=== PATIENT | male | born 1980 | race Hispanic/Latino ===

== ENCOUNTER 2019-02-03 15:24 | Outpatient (CLI) | payer OTHER ==
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
== END 2019-02-03 15:25 | disposition home or self-care (01) ==
LOC: BICRAD 15:24
PROVIDERS: ATTEND Specialist
DX: Z03.818 Encounter for observation for suspected exposure to other biological agents ruled out (principal)
CPT/HCPCS: 71046

== ENCOUNTER 2019-03-28 09:14 | Outpatient (CLI) | payer OTHER ==
--- NOTE | 2019-03-28 09:38 | RAD ---
Exam: CERVICAL SPINE 5 VIEWS: HISTORY: Cervical root disorder. No specific injury. However, the patient is having abnormal sensatio ns. Tingling in both hands. COMPARISON: None. FINDINGS: On the AP and open-mouth projection, no malalignment. Lateral masses of C1 and C2 articulate appropri ately. Intact odontoid process. No significant degenerative changes of the facets. Predental space is normal. No prevertebral soft tissue swelling. Adequate visualization of the cervical spine from C1 down to the cervicothoracic junction. Disc space heights are preserved. No fracture. Straightening of normal cervical lordosis in the neutral position likely due to position. No definite spinal listhesis. No abnormal motion upon extension or flexion. IMPRESSION: No significant degenerative change. If there is concern, consider MRI. Transcribed Date/Time: 03/28/2019 9:41 AM
== END 2019-03-28 09:15 | disposition home or self-care (01) ==
LOC: BICRAD 09:14
PROVIDERS: ATTEND Specialist
DX: S16.1XXA Strain of muscle, fascia and tendon at neck level, initial encounter (principal); G54.2 Cervical root disorders, not elsewhere classified
CPT/HCPCS: 72050

== ENCOUNTER 2021-11-21 22:34 | Emergency (ER) | payer BC, SELFPAY ==
[2021-11-21 23:40] LABS: #Basophils 0.1 thou/uL (0.0-0.2); #Eosinphils 0.1 thou/uL (0.0-0.7); #Lymphocytes 2.4 thou/uL (1.20-3.40); #Monocytes 1.1 thou/uL (0.11-0.59); #Neutrophils 7.8 thou/uL (1.40-6.50); %Basophils 0.6 % (0.0-1.0); %Eosinophils 0.6 % (0.0-10.0); %Lymphocytes 21.2 % (21.0-51.0); %Monocytes 9.3 % (0.0-10.0); %Neutrophils 68.3 % (42.0-75.0); Hemoglobin 15.1 g/dL (14.0-18.0); Mean Corpuscular HGB CONC 34.2 g/dL (32.0-36.0); Mean Corpuscular Hemoglobin 30.9 pg (27.0-31.0); Mean Corpuscular Volume 90.3 fL (78.0-98.0); Mean Platelet Volume 6.9 fL (7.4-10.4); Platelet Count 232 thou/uL (130-400); RBC Distribution Width 11.8 % (11.5-14.5); White Blood Cell (WBC) Count 11.3 thou/uL (4.8-10.8)
[2021-11-21 23:59] LABS: ALT (SGPT) 24 U/L (8-55); AST (SGOT) 15 U/L (5-34); Acetaminophen Less than 6.0 mcg/mL (10.0-30.0); Albumin 4.5 g/dL (3.5-5.0); Alcohol Less than 10 mg/dL (Less than 10); Alkaline Phosphatase 54 U/L (40-110); Anion Gap 14 mmol/L (10-20); BUN (Urea Nitrogen) 10 mg/dL (8.9-20.6); Bilirubin, Total 0.8 mg/dL (0.2-1.2); Calc. Creatinine Clearance 0 mL/min (70-130); Calcium 9.7 mg/dL (7.8-10.44); Carbon Dioxide 22 mmol/L (22-29); Chloride 105 mmol/L (98-107); Globulin 3.1 g/dL (2.4-3.5); Glucose 105 mg/dL (70-105); Potassium 3.4 mmol/L (3.5-5.1); Protein, Total 7.6 g/dL (6.0-8.3); Salicylate Less than 8.0 mg/dL (15.0-30.0); Sodium 138 mmol/L (136-145)
[2021-11-22 00:49] LABS: Amphetamine Not Detected (NotDetected); Barbiturates Screen Not Detected (NotDetected); Benzodiazepine Screen Detected (NotDetected); Cocaine Metabolite Screen Not Detected (NotDetected); Methadone Not Detected (NotDetected); Methamphetamine Not Detected (NotDetected); Opiate Screen Not Detected (NotDetected); Oxycodone Screen Not Detected (NotDetected); Phencyclidine (PCP) Not Detected (NotDetected); THC/Cannabinoid Screen Not Detected (NotDetected); Tricyclic Screen Not Detected (NotDetected)
[2021-11-22] MEDS ORDERED: Ondansetron ODT 4 MG TAB ONE (09:14)
== END 2021-11-22 12:51 ==
LOC: ERS 22:34
DX: F23 Brief psychotic disorder (principal); K21.9 Gastro-esophageal reflux disease without esophagitis; E78.5 Hyperlipidemia, unspecified; Z79.899 Other long term (current) drug therapy
CPT/HCPCS: 36415; 80053; 80306; 80307; 84443; 85025; 99285; Q0162